=== PATIENT | female | born 1975 | race Two or more races ===

== ENCOUNTER 2018-01-03 00:02 | Emergency (ER) | payer MEDICAID ==
[2018-01-03] MEDS ORDERED: DIPHENHYDRAMINE HCL 50 MG CAPSULE PO ONE (00:42)
[2018-01-03] MEDS ORDERED: FAMOTIDINE 20 MG TABLET PO ONE (00:42)
[2018-01-03] MEDS ORDERED: METHYLPREDNISOLONE INJ 125 MG/2 ML SDV IM ONE (00:42)
--- NOTE | 2018-01-03 01:41 | ER Document Report ---
HPI - HPI Pain Level: 4 Notes: Patient is a 42-year-old female who presents to the ED sore throat 4-5 days. Patient states that she did have upper respiratory symptoms prior to the start of her sore throat and rash, which have since resolved. Patient states that she is still eating and drinking without any difficulties, but does have some discomfort with swallowing. Patient states that she has also had generalized pruritus and occasional rash to her extremities x3 days. Patient states that Benadryl does help with her itching and the rash, but she ran out at home. Patient denies any new medications, foods, detergents, soap, travel, or insect bite. Denies any headache, fever, neck pain, changes in vision/speech/mentation /hearing, URI, chest pain, palpitations, syncope, cough, shortness of breath, wheeze, dyspnea, abdominal pain, nausea/vomiting/diarrhea, urinary retention, dysuria, hematuria, loss of control of bowel or bladder, numbness/tingling, muscle paralysis/weakness. - ROS Systems Reviewed and Negative: Yes All other systems reviewed and negative - EENT EENT: REPORTS: Sore Throat - NEURO Neurology: REPORTS: Headache - REPRODUCTIVE LMP: 12-08-17 Reproductive: DENIES: : Past Medical History - Social History Smoking Status: Current Every Day Smoker Chew tobacco use (# tins/day): No Frequency of alcohol use: Social Drug Abuse: Marijuana Family History: Reviewed & Not Pertinent Patient has suicidal ideation: No Patient has homicidal ideation: No Renal/ Medical History: Denies: Hx Peritoneal Dialysis Musculoskeltal Medical History: Reports Hx Arthritis Psychiatric Medical History: Reports: Hx Depression Past Surgical History: Reports: Hx Gynecologic Surgery - tubal ligation - Immunizations Hx Diphtheria, Pertussis, Tetanus Vaccination: Yes Vertical Provider Document - CONSTITUTIONAL Agree With Documented VS: Yes Notes: PHYSICAL EXAMINATION: GENERAL: Well-appearing, well-nourished and in no acute distress. A&Ox4. Answers questions appropriately. Moves comfortably w/o notable distress HEAD: Atraumatic, normocephalic. EYES: Pupils equal round and reactive to light, extraocular movements intact, sclera anicteric, conjunctiva are normal. ENT: EAC clear b/l. TM's intact b/l without erythema, fluid, or perforation. Nares patent and with clear discharge. oropharynx mild erythema without exudates. 2+ tonsilar hypertrophy without erythema or exudate. No palatine shift. Uvula midline. No tongue protrusion. No drooling, hoarseness, or airway compromise. Moist mucous membranes. No sinus tenderness. No angioedema. Bumps on tongue that were reported in history are posterior taste buds. NECK: Normal range of motion, supple without lymphadenopathy. No rigidity/ meningismus. LUNGS: Breath sounds clear to auscultation bilaterally and equal. No wheezes rales or rhonchi. No retractions HEART: Regular rate and rhythm without murmurs, rubs, gallops. ABDOMEN: Soft, nontender, nondistended abdomen. No guarding, no rebound. No masses appreciated. Normal bowel sounds present. No CVA tenderness bilaterally. No hepatosplenomegaly. NEUROLOGICAL: Normal speech, normal gait. Normal sensory, motor exams PSYCH: Normal mood, normal affect. SKIN: There were 2-3 small lesions resembling hives noted to the hands and legs. No signs of cellulitis or bacterial infection. - INFECTION CONTROL TRAVEL OUTSIDE OF THE [place] IN LAST 30 DAYS: No - RESPIRATORY O2 Sat by Pulse Oximetry: 98 Course - Re-evaluation Re-evalutation: 01/03/18 01:44 Patient is an afebrile, well-hydrated, 42-year-old female who presents to the ED with acute pharyngitis, suspect viral. Vitals are stable. PE is otherwise unremarkable. Patient also presents with a rash, suspect possible hives. Patient was given Solu-Medrol, Benadryl, and Pepcid which improved her symptoms. Rapid strep was negative with culture pending. Low suspicion for any meningitis, sepsis, peritonsillar/pharyngeal abscess, respiratory compromise , Tim's, angioedema, shock, or other emergent systemic condition at this time. Patient is aware this condition can change from initial presentation and she needs to monitor symptoms closely. Conservative measures otherwise for symptoms. Recheck with your PCM in 2-3 days. Return to the ED with any worsening/concerning symptoms otherwise as reviewed in discharge. Patient is in agreement. - Vital Signs Vital signs: Temp Pulse Resp BP Pulse Ox 99.3 F 87 18 148/86 H 98 01/03/18 00:13 01/03/18 00:13 01/03/18 00:13 01/03/18 00:13 01/03/18 00:13 Discharge - Discharge Clinical Impression: Rash and nonspecific skin eruption Acute pharyngitis Qualifiers: Pharyngitis/tonsillitis etiology: unspecified etiology Qualified Code(s): J02.9 - Acute pharyngitis, unspecified Condition: Stable Disposition: HOME, SELF-CARE Instructions: Sore Throat ([facility]) Additional Instructions: Maintain adequate fluid intake Take meds as directed Salt water gargles, throat sprays, mouthwash rinse, peroxide gargles tylenol/ibuprofen as needed benadryl/pepcid as needed over the counter cold medication as needed for symptoms F/u: with your PCM in 2-3 days for a recheck Consider consult with ENT for ongoing/worsening symptoms Return to the ED with any fever, worsening pain, chest pain, neck pain/stiffness , shortness of breath, cough, drooling, trouble swallowing/breathing, abdominal pain, n/v/d, rash, or worsening/concerning symptoms otherwise. Forms: Elevated Blood Pressure, Smoking Cessation Education Referrals: ORB TAYLOR MD [Primary Care Provider] - 01/04/18 ALEXANDER GRIDER DO [ASSOCIATE] - Follow up as needed
[2018-01-03 02:09] VITALS: BP 134/78
== END 2018-01-03 02:09 | disposition home or self-care (01) ==
LOC: ER 00:02
DX: J02.9 Acute pharyngitis, unspecified (principal); R21 Rash and other nonspecific skin eruption; R51 Headache; F17.200 Nicotine dependence, unspecified, uncomplicated
CPT/HCPCS: 99283; 96372; 87070; 87880; 87077; J3490 ×2; J2930

== ENCOUNTER 2019-11-27 21:32 | Emergency (ER) | payer SELFPAY ==
--- NOTE | 2019-11-27 23:57 | ER Document Report ---
ED Medical Screen (RME) - General Chief Complaint: Shortness Of Breath Stated Complaint: FLU LIKE SYMPTOMS Time Seen by Provider: 11/27/19 23:55 Primary Care Provider: ROB TAYLOR MD [Primary Care Provider] - Follow up as needed Notes: 44-year-old female presents with right rib pain and productive cough with phlegm. Regular rate and rhythm. Lungs clear to auscultation bilaterally. I have greeted and performed a rapid initial assessment of this patient. A comprehensive ED assessment and evaluation of the patient, analysis of test results and completion of the medical decision making process with be conducted by additional ED providers. TRAVEL OUTSIDE OF THE [place] IN LAST 30 DAYS: No - Related Data Allergies/Adverse Reactions: NSAIDS (Non-Steroidal Anti-Inflamma Adverse Reaction (Verified 06/24/16 15:01) Home Medications: celexa, ambien-prn, xanax Past Medical History Renal/ Medical History: Denies: Hx Peritoneal Dialysis Musculoskeltal Medical History: Reports Hx Arthritis Psychiatric Medical History: Reports: Hx Depression Past Surgical History: Reports: Hx Gynecologic Surgery - tubal ligation - Immunizations Hx Diphtheria, Pertussis, Tetanus Vaccination: Yes Physical Exam - Vital signs Vitals: Temp Pulse Resp BP Pulse Ox 98.6 F 61 20 156/67 H 96 11/27/19 22:08 11/27/19 22:08 11/27/19 22:08 11/27/19 22:08 11/27/19 22:08 Course - Vital Signs Vital signs: Temp Pulse Resp BP Pulse Ox 98.6 F 61 20 156/67 H 96 11/27/19 22:08 11/27/19 22:08 11/27/19 22:08 11/27/19 22:08 11/27/19 22:08 Doctor's Discharge - Discharge Referrals: ROB TAYLOR MD [Primary Care Provider] - Follow up as needed
--- NOTE | 2019-11-28 00:42 | RADIOLOGY REPORT (SQ) ---
EXAM DESCRIPTION: XR CHEST 2 VIEWS COMPLETED DATE/TME: 11/27/2019 23:56 CLINICAL HISTORY: right rib pain, coughing up phlegm COMPARISON: None. FINDINGS: Frontal and lateral views of the chest. Cardiomediastinal silhouette: Normal size and contour. Lungs: No consolidation, pneumothorax, or pleural effusion. Bones: No acute osseous abnormality. Upper abdomen: No abnormality identified. IMPRESSION: 1. No acute pulmonary process identified.
[2019-11-28] MEDS ORDERED: ALBUTEROL SULFATE HFA (90 MCG/PUFF) 8 GM MDI (1 MDI/ER DISP) IH ONE (03:39)
[2019-11-28] MEDS ORDERED: DEXAMETHASONE SOD PHOS INJ 10 MG/1 ML VIAL IM ONE (03:39)
--- NOTE | 2019-11-28 03:39 | ER Document Report ---
HPI - HPI Time Seen by Provider: 11/27/19 23:55 Pain Level: 4 Context: Patient is a 44-year-old female that comes to the emergency department for chief complaint of cough, pain in the right side of her chest with breathing deeply, and wheezing. She states she initially was sick almost 4 weeks ago with congestion, fever, cough. She states she got a lot better but she has had recent wheezing and she still has a cough and pain with deep breathing. She denies chest pain otherwise, nausea, vomiting, dizziness, or recent fevers. She smokes, denies history of asthma or diabetes. She states she has had pleurisy 1 time before and this feels the same. - CONSTITUTIONAL Constitutional: DENIES: Fever, Chills - CARDIOVASCULAR Cardiovascular: REPORTS: Chest pain - RESPIRATORY Respiratory: REPORTS: Coughing - REPRODUCTIVE Reproductive: DENIES: : Past Medical History - General Information source: Patient - Social History Smoking Status: Current Every Day Smoker Smoking Education Provided: Yes - <3 min Drug Abuse: None Lives with: Family Family History: Reviewed & Not Pertinent Patient has suicidal ideation: No Patient has homicidal ideation: No Renal/ Medical History: Denies: Hx Peritoneal Dialysis Musculoskeletal Medical History: Reports Hx Arthritis Psychiatric Medical History: Reports: Hx Depression - anxiety Past Surgical History: Reports: Hx Gynecologic Surgery - tubal ligation - Immunizations Hx Diphtheria, Pertussis, Tetanus Vaccination: Yes Vertical Provider Document - CONSTITUTIONAL General Appearance: WD/WN, No Apparent Distress - INFECTION CONTROL TRAVEL OUTSIDE OF THE [place] IN LAST 30 DAYS: No - HEENT HEENT: Atraumatic, Normal ENT Exam - Normal nasal exam, sinuses, oropharyngeal exam, ears, eyes, Normocephalic - NECK Neck: Normal Inspection. negative: Lymphadenopathy-Left, Lymphadenopathy-Right - RESPIRATORY Respiratory: Breath Sounds Normal, No Respiratory Distress - CARDIOVASCULAR Cardiovascular: Regular Rate, Regular Rhythm - GI/ABDOMEN Gastrointestinal: Abdomen Soft, Abdomen Non-Tender. negative: Abdomen Tender - MUSCULOSKELETAL/EXTREMETIES Musculoskeletal/Extremeties: MAEW, FROM, Non-Tender - NEURO Level of Consciousness: Awake, Alert, Appropriate Motor/Sensory: No Motor Deficit, No Sensory Deficit - DERM Integumentary: Warm, Dry, No Rash Course - Re-evaluation Re-evalutation: Patient with negative chest x-ray and normal EKG. Symptoms are very respiratory with reported pleuritic pain, reported painful cough. Patient is not wheezing, not hypoxic, has no respiratory distress, speaks in full sentences, is very well-appearing. Patient is requesting treatment for pleurisy. Discussed options, patient declined prednisone because of her history of gastritis, provided with dexamethasone instead. Discussed follow-up and return precautions. Patient states appreciation and agreement. - Vital Signs Vital signs: Temp Pulse Resp BP Pulse Ox 98.3 F 62 14 141/75 H 99 11/28/19 01:04 11/28/19 01:04 11/28/19 01:04 11/28/19 01:04 11/28/19 01:04 - EKG Interpretation by Me Additional EKG results interpreted by me: EKG shows sinus rhythm at a rate of 61, QTC of 440, normal axis, no T wave inversions or ST segment changes in consecutive leads. Machine reads as normal Discharge - Discharge Clinical Impression: Pleuritic pain, Cough, Wheezing Condition: Stable Disposition: HOME, SELF-CARE Additional Instructions: Your chest x-ray is negative. Your examination is consistent with resolving bronchitis and pleurisy. Use albuterol inhaler and spacer if needed for cough/wheezing/shortness of breath. Stop smoking. Symptoms should gradually resolve. Follow-up with primary care. Return if you worsen including spiking fevers, difficulty breathing, or any other concerning or worsening symptoms. Prescriptions: Albuterol Sulfate [Proair HFA Inhalation Aerosol 8.5 gm MDI] 2 puff IH Q4H PRN #1 mdi PRN Reason: Forms: Smoking Cessation Education Referrals: ROB TAYLOR MD [Primary Care Provider] - Follow up as needed
[2019-11-28 03:46] VITALS: BP 133/65
--- NOTE | 2019-11-28 07:10 | EKG REPORT ---
SEVERITY:- NORMAL ECG - SINUS RHYTHM : Confirmed by: Chase Calix MD 28-Nov-2019 07:10:09
== END 2019-11-28 03:54 | disposition home or self-care (01) ==
LOC: ER 21:32
DX: R05 Cough (principal); R07.81 Pleurodynia; R07.1 Chest pain on breathing; R06.2 Wheezing; F17.200 Nicotine dependence, unspecified, uncomplicated
CPT/HCPCS: 93005; 99284; 96372; 71046; 93010; J1100; J3490